=== PATIENT | female | born 1970 | race Caucasian/White ===

== ENCOUNTER 2019-07-03 14:44 | Emergency (ER) | payer OTHER, SELFPAY ==
[2019-07-03 15:00] VITALS: BP 140/79; PULSE 86; RESP 20; TEMP 37.3; O2SAT 100
--- NOTE | 2019-07-03 15:51 | ED.URI ---
HPI - URI/Sore Throat General Chief Complaint: Upper Respiratory Infection Stated Complaint: CHEST CONGESTION/COUGH/SORE THROAT Time Seen by Provider: 07/03/19 15:51 Source: patient Mode of arrival: ambulatory Limitations: no limitations History of Present Illness HPI Narrative: Alayna Estevez is a 49 yo femalewith a PMH of hiatal hernia who comes to express care with complaints of sore throat, cough, and shivers that started yesterday. He has not taken anything for the symptoms Related Data Home Medications Medication Instructions Recorded Confirmed famotidine [Pepcid] 40 mg PO BID 07/03/19 07/03/19 levonorgestrel [Mirena] 1 device INTRAUTERINE ONCE 07/03/19 07/03/19 omeprazole 40 mg PO DAILY 07/03/19 07/03/19 Allergies Allergy/AdvReac Type Severity Reaction Status Date / Time morphine Allergy Unknown Unknown Verified 07/03/19 15:09 Review of Systems Review of Systems: Narrative: CONSTITUTIONAL: Denies fever, chills, sweats. EYES: Denies visual changes, redness, discharge. ENT: Denies rhinorrhea, congestion, has sore throat, otalgia. CARDIOVASCULAR: Denies chest pain, palpitations, edema. RESPIRATORY: Denies dyspnea, wheezing, has cough GASTROINTESTINAL: Denies abdominal pain, nausea, vomiting, diarrhea. GENITOURINARY: Denies dysuria, hematuria, abnormal discharge SKIN: Denies rash or itching. NEUROLOGIC: Denies numbness, or focal weakness. PSYCHIATRIC: Denies anxiety or depression. [facility] Family History Family History Other Diabetes mellitus High cholesterol Hypertension Social History Social History (Updated 07/03/19 @ 15:58 by Sinai Buenrostro CNP) Smoking status: Never smoker Alcohol intake: current Comments At time of signature, I agree with nursing past medical, surgical, social and family history. There is no relevant family history pertinent to the presenting complaint. Exam Narrative: Exam Narrative: GENERAL: This is a well-nourished, well-developed patient, in no apparent distress. HEAD: normocephalic, atraumatic. EYES: Sclera clear/white. Vision is grossly intact. EARS: External ears normal, auditory canals clear and without drainage, TMs normal without perforation. Hearing grossly intact. NOSE: External nose normal with no obvious nasal discharge, nares without redness, no rhinorrhea. THROAT: Mucous membranes moist, posterior pharynx mild erythema; states is hard to swallow NECK: Neck supple, non-tender without lymphadenopathy, CARDIOVASCULAR: Regular rate and rhythm without murmurs, gallops, or rubs. RESPIRATORY: Clear to auscultation. Breath sounds equal bilaterally. No wheezes, rales, or rhonchi. GASTROINTESTINAL: Abdomen soft, non-tender, SKIN: warm, intact with no suspicious lesions or rash, good texture and turgor. NEURO: awake, alert, and oriented to person, place and time. There were no obvious focal neurologic abnormalities. Steady gait EXTREMITIES: Normal range of motion. No edema. BACK: Nontender without deformity or crepitance. Course Course Emergency Course: Strep swab positive Started onpenicillin, prednisone, Tessalon-infection control discussed Vital Signs Vital signs: Vital Signs Temperature 99.1 F 07/03/19 15:00 Pulse Rate 86 07/03/19 15:00 Respiratory Rate 20 07/03/19 15:00 Blood Pressure 140/79 07/03/19 15:00 Pulse Oximetry 100 07/03/19 15:00 Temperature 99.1 F 07/03/19 15:00 Pulse Rate 86 07/03/19 15:00 Respiratory Rate 20 07/03/19 15:00 Blood Pressure 140/79 07/03/19 15:00 Pulse Oximetry 100 07/03/19 15:00 MDM - URI/Sore Throat Differential Diagnosis Differential diagnosis: Likely upper respiratory infection, viral infection and pharyngitis Lab Data Labs: Strep Screen Positive Group A Strep *(Reference Range: Negative)* Discharge Plan Discharge Clinical Impression: Pharyngitis Qualifiers: Pharyngitis/to
== END 2019-07-03 16:29 | disposition home or self-care (01) ==
PROVIDERS: Emergency Provider Nurse Practitioner
DX: J02.0 Streptococcal pharyngitis (principal)
CPT/HCPCS: 87880; 99213; G0463